=== PATIENT | male | born 1970 | race Caucasian/White ===

== ENCOUNTER 2019-06-26 00:37 | Day surgery (SDC) | payer OTHER, SELFPAY ==
[2019-06-20 14:43] VITALS: BMI 33.2
[2019-06-26 09:24] VITALS: BP 145/102; PULSE 66; RESP 17; TEMP 36.4; O2SAT 98; BMI 32.6
[2019-06-26] MEDS: LACTATED RINGERS 1,000 ML 150 ML IV CONT (09:36)
--- NOTE | 2019-06-26 09:47 | WPDANESEPPF ---
Anes - Initial Pre Proc Eval Procedure: Operation Date: 06/26/19 09:45 Proposed Procedures p Screening Colonoscopy - Erich Glaser MD Date/Time: 06/26/19 09:47 Surgeon: Erich Glaser MD Pre Op Diagnosis: Neoplasm Screening Patient Data Age: 48 Gender: M Height: 5 ft 9 in Weight: 100.3 kg Last Vital Signs Temp 97.5 F L 06/26/19 09:24 Pulse 66 06/26/19 09:24 Resp 17 06/26/19 09:24 BP 145/102 H 06/26/19 09:24 Pulse Ox 98 06/26/19 09:24 Allergies Allergy/AdvReac Type Severity Reaction Status Date / Time No Known Allergies Allergy Verified 06/26/19 09:22 Home Medications Medication Instructions Recorded Confirmed Type fluoxetine 10 mg capsule 10 mg PO DAILY #30 cap 04/25/19 06/26/19 Rx atenolol 100 mg-chlorthalidone 25 1 tablet PO DAILY 05/15/19 06/26/19 History mg tablet atorvastatin 20 mg tablet 20 mg PO DAILY 05/15/19 06/26/19 History esomeprazole magnesium 20 mg 20 mg PO DAILY 05/15/19 06/26/19 History capsule,delayed release losartan 50 mg tablet 50 mg PO DAILY 05/15/19 06/26/19 History Patient hx anesthesia problems: none Family hx anesthesia problems: none PMFSH Past Medical History Medical History (Updated 05/15/19 @ 21:41 by Janice Price MD) Benign reactive hypertension GERD (gastroesophageal reflux disease) MDD (major depressive disorder), recurrent episode, moderate Mixed hyperlipidemia Surgical History Surgical History (Updated 05/15/19 @ 21:40 by Janice Price MD) History of esophagogastroduodenoscopy (EGD) Social History Social History (Updated 05/15/19 @ 09:10 by Nereyda Chawla) Smoking status: Never smoker Second hand tobacco smoke exposure: No Alcohol intake: current Drinks per week: 6 Substance use: never Substance use type: does not use Gender identity (if verbalized by the patient): Male Anes - Eval Final PreProcedure Day of Procedure 06/26/19 09:47 Patient weight: overweight Heart: regular rate and rhythm Lungs: clear to auscultation Airway: Mallampati scale class III Neurological: alert and oriented Last oral intake: >/= 8 hours ASA classification: II Emergent: no Anesthetic plan: proceed Anesthesia type and monitoring: general GIVS and standard monitoring Informed Consent: The patient's anesthetic plan and its attendant risks and benefits were discussed with the patient/family/POA. Questions were solicited and answers provided to the satisfaction of the patient/family/POA.
--- NOTE | 2019-06-26 10:17 | PM.HPGS ---
History of Present Illness History of Present Illness Consent: Risks, benefits, and alternatives have been discussed and questions answered. Patient agrees to proceed with procedure. Chief complaint: Neoplasm Screening Narrative: Danish Hernandez is a 48 year old male with screening colonoscopy, first one. Review of Systems Constitutional: Constitutional: Denies headache(s) and Denies weakness Eyes: Eyes: Denies blurry vision ENT: Reports Normal hearing present, Denies headache(s) and Denies neck pain Cardiovascular: Cardiovascular: Denies chest pain and Denies dyspnea Respiratory: Respiratory: Denies dyspnea Gastrointestinal: Gastrointestinal: Reports no additional gastrointestinal complaints Genitourinary: Genitourinary: Denies dysuria Musculoskeletal: Musculoskeletal: Denies neck pain Integumentary/Breasts: Skin/Breast: Denies dry skin Neurologic: Reports Normal hearing present, Denies headache(s) and Denies weakness Psychiatric: Psychiatric: Denies anxiety Endocrine: Endocrine: Denies change in body appearance Hematologic/Lymphatic: Hematologic/Lymphatic: Denies easy bleeding Allergic/Immunologic: Allergic/Immunologic: Denies urticaria PMFSH Past Medical History Medical History (Updated 06/26/19 @ 10:20 by Erich Glaser MD) Benign reactive hypertension GERD (gastroesophageal reflux disease) MDD (major depressive disorder), recurrent episode, moderate Mixed hyperlipidemia Surgical History Surgical History (Updated 05/15/19 @ 21:40 by Janice Price MD) History of esophagogastroduodenoscopy (EGD) Social History Social History (Updated 05/15/19 @ 09:10 by Nereyda Chawla) Smoking status: Never smoker Second hand tobacco smoke exposure: No Alcohol intake: current Drinks per week: 6 Substance use: never Substance use type: does not use Gender identity (if verbalized by the patient): Male Meds Home Medications and Allergies Home Medications Medication Instructions Recorded Confirmed Type fluoxetine 10 mg capsule 10 mg PO DAILY #30 cap 04/25/19 06/26/19 Rx atenolol 100 mg-chlorthalidone 25 1 tablet PO DAILY 05/15/19 06/26/19 History mg tablet atorvastatin 20 mg tablet 20 mg PO DAILY 05/15/19 06/26/19 History esomeprazole magnesium 20 mg 20 mg PO DAILY 05/15/19 06/26/19 History capsule,delayed release losartan 50 mg tablet 50 mg PO DAILY 05/15/19 06/26/19 History Allergies Allergy/AdvReac Type Severity Reaction Status Date / Time No Known Allergies Allergy Verified 06/26/19 09:22 Vital Signs Vital Signs - 24 hr 06/26/19 09:24 Temperature 97.5 F L Pulse Rate 66 Respiratory Rate 17 Blood Pressure 145/102 H Pulse Oximetry 98 Exam Const: General: comfortable and no acute distress HENMT: General nose exam: Normal nares present Eyes: General: appearance normal, both eyes and all related structures Neck: Neck: no JVD Resp: Auscultation: clear to auscultation bilaterally Cardio: Rate: regular rate Rhythm: regular rhythm GI: Inspection: non-distended GI Palp: Yes Soft to palpation Skin: General skin exam: normal color Neuro: General: gait normal Speech: normal speech Extrem: General: normal to inspection Psych: Mental Status: mental status grossly normal Assessment and Plan Assessment and plan (1) Colon cancer screening: Code(s): Z12.11 - Encounter for screening for malignant neoplasm of colon Status: Acute Assessment and Plan: will proceed with colonoscopy (2) GERD (gastroesophageal reflux disease): Qualifiers: Esophagitis presence: esophagitis presence not specified Qualified Code(s): K21.9 - Gastro-esophageal reflux disease without esophagitis Code(s): K21.9 - Gastro-esophageal reflux disease without esophagitis Status: Acute
[2019-06-26 10:38] VITALS: BP 104/70; PULSE 57; RESP 14; O2SAT 94
[2019-06-26 10:52] VITALS: BP 100/69; PULSE 54; RESP 15; O2SAT 94
[2019-06-26 11:02] VITALS: BP 117/82; PULSE 50; RESP 15; O2SAT 96
== END 2019-06-26 11:09 | disposition home or self-care (01) ==
PROVIDERS: PCP Family Medicine; Visit Provider Internal Medicine Gastroenterology
PROC: 0DJD8ZZ Inspection of Lower Intestinal Tract, Via Natural or Artificial Opening Endoscopic (ICD-10-PCS; CPT 45378; principal; 2019-06-26 09:45)
DX: Z12.11 Encounter for screening for malignant neoplasm of colon (principal); D12.2 Benign neoplasm of ascending colon; K64.8 Other hemorrhoids; E78.2 Mixed hyperlipidemia; I10 Essential (primary) hypertension; K21.9 Gastro-esophageal reflux disease without esophagitis; F33.1 Major depressive disorder, recurrent, moderate
CPT/HCPCS: 45385; 88305; J2704; J7120

== ENCOUNTER 2024-10-02 03:13 | Day surgery (SDC) | payer OTHER, SELFPAY ==
[2024-09-24 08:58] VITALS: BMI 35.4
[2024-10-02 07:15] VITALS: BP 134/81; PULSE 75; RESP 16; TEMP 36.1; O2SAT 98; BMI 34.3
[2024-10-02] MEDS: LACTATED RINGERS 1,000 ML 150 ML IV CONT (07:28)
--- NOTE | 2024-10-02 08:21 | WPDANESEPPF ---
Anes - Initial Pre Proc Eval Procedure: Operation Date: 10/02/24 08:30 Proposed Procedures p Colonoscopy - Erich Glaser MD Date/Time: 10/02/24 08:21 Surgeon: Erich Glaser MD Pre Op Diagnosis: Personal history of colon polyps, unspecified Patient Data Age: 54 Gender: M Height: 1.75 m Weight: 105.6 kg Last Vital Signs Temp 97 F L 10/02/24 07:15 Pulse 75 10/02/24 07:15 Resp 16 10/02/24 07:15 BP 134/81 10/02/24 07:15 Pulse Ox 98 10/02/24 07:15 O2 Del Method Room Air 10/02/24 07:15 Allergies Allergy/AdvReac Type Severity Reaction Status Date / Time Vloputm-[id number] Reductase AdvReac Intermediate elevated Verified 10/02/24 07:12 Inhibitor liver enzymes Home Medications ?Medication ?Instructions ?Recorded ?Confirmed ?Type atenolol 100 mg-chlorthalidone 25 1 tablet PO QAM #90 tabs 03/27/24 10/02/24 Rx mg tablet atorvastatin 40 mg tablet 40 mg PO QPM #90 tabs 03/27/24 10/02/24 Rx esomeprazole magnesium 20 mg 20 mg PO QAM #90 caps 03/27/24 10/02/24 Rx capsule,delayed release ezetimibe 10 mg tablet 10 mg PO DAILY #90 tabs 03/27/24 10/02/24 Rx irbesartan 300 mg tablet 300 mg PO QPM 3 months #90 tabs 03/27/24 10/02/24 Rx Patient hx anesthesia problems: none Family hx anesthesia problems: none Results Review: All pre-operative results and documents have been reviewed as part of the pre-operative evaluation. [facility] Past Medical History Medical History MDD (major depressive disorder), recurrent episode, moderate GERD (gastroesophageal reflux disease) Mixed hyperlipidemia Benign reactive hypertension Surgical History Surgical History History of esophagogastroduodenoscopy (EGD) Family History Family History Father Hypertension Family history of elevated blood lipids Social History Social History Social History: Smoking status: Never smoker Second hand tobacco smoke exposure: No Alcohol intake: current Drinks per week: 20 Substance use: never Substance use type: does not use Do You Feel Safe in your Home?: Yes Lack of Transportation: No Lack of Food: Never True Current Housing: I Have Housing Concerned About Future Housing: No Difficulty Paying Gas/Electric Bills: No Difficulty Paying for Meds: No Currently Unemployed: No Education: Master's Degree or Higher Difficulty w/ Childcare or Family Care: No Living arrangements: with family Occupation/Education: occupation Gender identity (if verbalized by the patient): Male Sexual Orientation (if Verbalized by the Patient): Straight or Heterosexual Spiritual care concerns: No Agree to blood products: Yes Anes - Eval Final PreProcedure Day of Procedure 10/02/24 08:21 Patient weight: obese Heart: regular rate and rhythm Lungs: clear to auscultation Airway: Mallampati scale class II Neurological: alert and oriented Last oral intake: >/= 8 hours ASA classification: III Emergent: no Anesthetic plan: proceed Anesthesia type and monitoring: general GIVS and standard monitoring Results Review: All pre-operative results and documents have been reviewed as part of the pre-operative evaluation. Informed Consent: The patient's anesthetic plan and its attendant risks and benefits were discussed with the patient/family/POA. Questions were solicited and answers provided to the satisfaction of the patient/family/POA.
--- NOTE | 2024-10-02 08:26 | PM.HPGS ---
History of Present Illness History of Present Illness Consent: Risks, benefits, and alternatives have been discussed and questions answered. Patient agrees to proceed with procedure. Chief complaint: Personal history of colon polyps, unspecified Narrative: Danish Hernandez is a 54 year old male with colon polyp in 2019 Review of Systems Review of Systems: All systems reviewed & are unremarkable except as noted in HPI and below PMFSH Past Medical History Medical History (Updated 10/02/24 @ 08:27 by Erich Glaser MD) Colon polyp MDD (major depressive disorder), recurrent episode, moderate GERD (gastroesophageal reflux disease) Mixed hyperlipidemia Benign reactive hypertension Surgical History Surgical History History of esophagogastroduodenoscopy (EGD) Family History Family History Father Hypertension Family history of elevated blood lipids Social History Social History Social History: Smoking status: Never smoker Second hand tobacco smoke exposure: No Alcohol intake: current Drinks per week: 20 Substance use: never Substance use type: does not use Do You Feel Safe in your Home?: Yes Lack of Transportation: No Lack of Food: Never True Current Housing: I Have Housing Concerned About Future Housing: No Difficulty Paying Gas/Electric Bills: No Difficulty Paying for Meds: No Currently Unemployed: No Education: Master's Degree or Higher Difficulty w/ Childcare or Family Care: No Living arrangements: with family Occupation/Education: occupation Gender identity (if verbalized by the patient): Male Sexual Orientation (if Verbalized by the Patient): Straight or Heterosexual Spiritual care concerns: No Agree to blood products: Yes Meds Home Medications and Allergies Home Medications ?Medication ?Instructions ?Recorded ?Confirmed ?Type atenolol 100 mg-chlorthalidone 25 1 tablet PO QAM #90 tabs 03/27/24 10/02/24 Rx mg tablet atorvastatin 40 mg tablet 40 mg PO QPM #90 tabs 03/27/24 10/02/24 Rx esomeprazole magnesium 20 mg 20 mg PO QAM #90 caps 03/27/24 10/02/24 Rx capsule,delayed release ezetimibe 10 mg tablet 10 mg PO DAILY #90 tabs 03/27/24 10/02/24 Rx irbesartan 300 mg tablet 300 mg PO QPM 3 months #90 tabs 03/27/24 10/02/24 Rx Allergies Allergy/AdvReac Type Severity Reaction Status Date / Time Tkunlri-DCH-LwH Reductase AdvReac Intermediate elevated Verified 10/02/24 07:12 Inhibitor liver enzymes Vital Signs Vital Signs - 24 hr 10/02/24 07:15 Temperature 97 F L Pulse Rate 75 Respiratory Rate 16 Blood Pressure 134/81 Pulse Oximetry 98 Oxygen Delivery Room Air Exam Const: General: comfortable and no acute distress HENMT: Face/Nose/Sinus: Normal nares present Eyes: General: appearance normal, both eyes and all related structures Neck: Neck: no JVD Resp: Auscultation: clear to auscultation bilaterally Cardio: Rate: regular rate Rhythm: regular rhythm GI: Inspection: non-distended GI Palp: Yes Soft to palpation Skin: General skin exam: normal color Neuro: General: gait normal Speech: normal speech Extrem: General: normal to inspection Psych: Mental Status: mental status grossly normal Assessment and Plan Assessment and plan (1) Colon polyp: Code(s): K63.5 - Polyp of colon Status: Acute Assessment and Plan: colonoscopy
--- NOTE | 2024-10-02 08:41 | S_PTH ---
PATIENT: Danish Hernandez LOC: [facility]#:[id number] AGE/SX: 54/M ROOM: RE10/02/[address]: Erich Glaser MD : 1970 BED: DIS: 10/02/2024 SPEC #: [id number] RECD: 10/02/24 10:57 STATUS: BRITTANI RE #: [id number] PATRICK: 10/02/24 08:[address]: Erich Glaser DEPT: [facility] Surgical RECD BY: Sole Jack ENTERED: 10/02/24 10:58 SP TYPE: Surgical OTHR DR: Willy Ramirez MD Tissues: A - Colon Polypectomy B - Colon Polypectomy Procedures: Hematoxylin and Eosin Stain Gross and Microscopic Level 4
[2024-10-02 08:46] VITALS: BP 104/70; PULSE 60; RESP 14; O2SAT 94
[2024-10-02 08:56] VITALS: BP 126/78; PULSE 53; RESP 17; O2SAT 97
[2024-10-02 09:06] VITALS: BP 125/78; PULSE 52; RESP 18; O2SAT 100
== END 2024-10-02 09:16 | disposition home or self-care (01) ==
PROVIDERS: PCP Family Medicine; Referring Provider Internal Medicine Gastroenterology; Visit Provider Internal Medicine Gastroenterology
PROC: 0DJD8ZZ Inspection of Lower Intestinal Tract, Via Natural or Artificial Opening Endoscopic (ICD-10-PCS; CPT 45378; principal; 2024-10-02 08:30)
DX: Z12.11 Encounter for screening for malignant neoplasm of colon (principal); D12.3 Benign neoplasm of transverse colon; K63.5 Polyp of colon; K64.8 Other hemorrhoids
CPT/HCPCS: 45385; 45380; 88305; J2003; J2704; J7120